=== PATIENT | male | born 1960 | race African-American/Black ===

== ENCOUNTER 2018-08-10 17:12 | Emergency (ER) | payer MEDICAID ==
[~2018-08-10] VITALS: Ht 182.9 cm; Wt 220.0 kg
[~2018-08-10 17:12] MED LIST: ALBU18HF2 INH; AMLO10TA80 PO; ASPI-1158 PO; AZEL137S NS; FLUT16SP15 NS; FLUT1DIS3 INH; FURO40TA5 PO; LORA10TA7 PO; PROAIR; TRAM50TA3 PO
[2018-08-10] MEDS ORDERED: TRAMADOL 50MG TABLET PO ONE (17:45)
[2018-08-10 23:15] VITALS: BP 145/77
== END 2018-08-10 23:16 | disposition home or self-care (01) ==
LOC: ER 17:12
DX: I82.532 Chronic embolism and thrombosis of left popliteal vein (principal); G89.29 Other chronic pain; M79.662 Pain in left lower leg; J44.9 Chronic obstructive pulmonary disease, unspecified; I11.9 Hypertensive heart disease without heart failure; Z99.81 Dependence on supplemental oxygen; Z79.82 Long term (current) use of aspirin
CPT/HCPCS: 73562; 73590; 93970; 99284